=== PATIENT | female | born 1980 | race Two or more races ===

== ENCOUNTER 2021-06-29 11:18 | Day surgery (SDC) | payer OTHER ==
[~2021-06-29] VITALS: Ht 165.1 cm; Wt 67.1 kg
[2021-06-29] MEDS ORDERED: fentaNYL citrate 0.05 MG/ML VIAL ONE (13:10)
[2021-06-29] MEDS ORDERED: LIDOCAINE 2% 100 MG/5 ML UJET TP ONE ×2 (13:10→14:00)
[2021-06-29] MEDS ORDERED: fentaNYL citrate 0.05 MG/ML VIAL IVP ONE (14:00)
== END 2021-06-29 14:45 | disposition home or self-care (01) ==
LOC: MDS 11:18 → MMU 11:37 → MDS 14:45
PROVIDERS: ATTEND Internal Medicine Gastroenterology
DX: K62.5 Hemorrhage of anus and rectum (principal); K57.30 Diverticulosis of large intestine without perforation or abscess without bleeding; K64.4 Residual hemorrhoidal skin tags; Z79.899 Other long term (current) drug therapy
CPT/HCPCS: 45378; 81025; J3010